=== PATIENT | female | born 1950 | race Caucasian/White ===

== ENCOUNTER → 2017-07-25 | Outpatient (CLI) | payer OTHER ==
[2016-09-27 13:49] VITALS: BMI 26.1
[~2017-07-25] MED LIST: ACET-1748 PO; ALBU8.5H IH; ALPR-429 PO; AMOX-559 PO; ASP325 PO; ASPI-1471 PO; ASPI-715 PO; AZIT-1 PO; BISO5 PO; BISTOLIC; BP MED; BUPR-126 PO; CALC-852 PO; CARV25TA78 PO; CIP500 PO; CYC10 PO; DIAZ-308 PO; DIPH0.5V3 IM; DOXY-179 PO; FLUT16SP19 NS; GUAI473L PO; HYDR-3250 PO; HYDR12.558 PO; IBU800 PO; LIDO700A19 TD; LISI-353 PO; LISI-355 PO; LISI-368 PO; LISI30TA49 PO; MECL-111 PO; MECL25TA9 PO; METH4TAB66 PO; MULT-768 PO; MULT1CAP59 PO; NICO-306 BC; NO ROUTINE MEDS; ONDA-2 PO; ONDA4TAB PO; ONDA8TAB94 PO; PRAV10TA45 PO; PRAV10TA46 PO; PRAV20TA66 PO; PRED20TA6 PO; Return to work; SCOT TD; SERT-1 PO; SERT-184 PO; SIMV-42 PO; SUMA50TA34 PO; VENL37.53 PO; ZIA10 PO
[2017-07-25 16:24] LABS: PLATELET COUNT, AUTOMATED 182 K/uL (150-450)
--- NOTE | 2017-07-25 16:41 | RADIOLOGY IMAGING REPORT ---
FACILITY: [facility] - [place] PATIENT NAME: Anita Mayers : 1950 MR: [id number] V: [id number] EXAM DATE: ORDERING PHYSICIAN: FRANCESCA WHITAKER TECHNOLOGIST: Location: [facility] Patient: Anita Mayers : 1950 Visit/Account:[id number] Date of Sevice: 07/25/2017 CHEST PA AND LAT INDICATION: RUQ abdominal pain COMPARISON: 03/10/2017 FINDINGS: Heart size within normal limits. There is no focal infiltrate or lobar consolidation. There is no pneumothorax or pleural effusion. IMPRESSION: 1. No acute cardiopulmonary process. Report Dictated By: Dwayne Chávez at 07/25/2017 4:35 PM Report E-Signed By: Dwayne Chávez at 07/25/2017 4:36 PM WSN:[id number]
== END ==
LOC: LAB 15:59
PROVIDERS: ATTEND Nurse Practitioner Primary Care
DX: R10.11 Right upper quadrant pain (principal)
CPT/HCPCS: 36415; 71046; 81001; 82040; 82150; 82247; 82310; 82374; 82435; 82565; 82947; 83690; 84075; 84132; 84155; 84295; 84450; 84460; 84520; 85025

== ENCOUNTER → 2017-09-10 | Outpatient (CLI) | payer OTHER ==
[2016-09-27 13:49] VITALS: BMI 26.1
[~2017-09-10] MED LIST changes: +IPRA3AMP21 IH
--- NOTE | 2017-09-10 17:01 | RADIOLOGY IMAGING REPORT ---
FACILITY: [facility] PATIENT NAME: Anita Mayers : 1950 MR: [id number] V: [id number] EXAM DATE: ORDERING PHYSICIAN: FRANCESCA WHITAKER TECHNOLOGIST: [facility] Patient: Anita Mayers : 1950 Visit/Account:[id number] Date of Sevice: 09/10/2017 2 VIEWS CHEST INDICATION: Cough shortness of breath. History of smoking. COMPARISON: 07/25/2017. FINDINGS: Cardiomediastinal silhouette and pulmonary vessels within normal limits. There is no focal infiltrate or lobar consolidation. There is no pneumothorax or pleural effusion. No nodule. Upper abdomen is unremarkable. No acute bony abnormality. IMPRESSION: 1. No acute cardiopulmonary process. Report Dictated By: Fortunato Maza at 09/10/2017 4:56 PM Report E-Signed By: Fortunato Maza at 09/10/2017 4:57 PM WSN:[id number]
== END ==
LOC: RAD 16:15
PROVIDERS: ATTEND Nurse Practitioner Primary Care
DX: R06.02 Shortness of breath (principal)
CPT/HCPCS: 71046

== ENCOUNTER → 2018-01-28 | Outpatient (CLI) | payer OTHER ==
[2016-09-27 13:49] VITALS: BMI 26.1
[~2018-01-28] MED LIST changes: +AMOX500T10 PO; +BENZ200C15 PO; +CLAR-1 PO; +GUAI120L3 PO; +IPRA3AMP10 IH; -IPRA3AMP21 IH; +LOR5/325 PO; +ONDA4TAB97 PO; +PANT40TA65 PO; +PRED-1 PO; +Work Note
--- NOTE | 2018-01-28 10:44 | RADIOLOGY IMAGING REPORT ---
[place]AC[place] [facility] [place] PATIENT NAME: Anita Mayers : 1950 MR: [id number] V: [id number] EXAM DATE: ORDERING PHYSICIAN: FRANCESCA WHITAKER TECHNOLOGIST: Location: [facility] [place] Patient: Anita Mayers : 1950 Visit/Account:[id number] Date of Sevice: 01/28/2018 GALLBLADDER HISTORY: Right upper quadrant pain x2 weeks COMPARISON: None. FINDINGS: Gallbladder: There is no demonstration of bladder stones sludge or gallbladder wall thickening. Is a negative Cisneros sign Liver: Mild increased echogenicity throughout liver which can be seen with fatty infiltration or othe r infiltrative process Common duct: 5.4 mm diameter.. There is a 10 x 6 x 12 mm ovoid echogenic focus within the common sam e duct although no evidence of biliary ductal dilatation Pancreas: Partially obscured by bowel, visualized aspects unremarkable. Right kidney: Right kidney appears unremarkable measuring 9.2 cm in length Upper abdominal aorta and IVC: Patent. Ascites: None visualized. IMPRESSION: Mild fatty infiltration of the liver No evidence of gallstones although there is a 10 x 6 x 12 mm ovoid echogenic focus within the common bile duct. This could represent choledocholithiasis or possibly a sludge ball. There is no evidence of common bile duct dilatation or intrahepatic ductal dilatation Report Dictated By: Christa Borden MD at 01/28/2018 10:37 AM Report E-Signed By: Christa Borden MD at 01/28/2018 10:40 AM WSN:[id number]
== END ==
LOC: US 01:14
PROVIDERS: ATTEND Nurse Practitioner Primary Care
DX: K76.0 Fatty (change of) liver, not elsewhere classified (principal)
CPT/HCPCS: 76705

== ENCOUNTER 2018-01-29 10:11 | Emergency (ER) | payer OTHER ==
[2016-09-27 13:49] VITALS: Wt 68.0 kg
[~2018-01-29 10:11] MED LIST changes: -AMOX500T10 PO; -CLAR-1 PO; -LOR5/325 PO; -ONDA4TAB97 PO; -PANT40TA65 PO
[2018-01-29 10:15] VITALS: BP 126/99
--- NOTE | 2018-01-29 10:15 | ER Report ---
History and Physical Time Seen By MD: 10:14 HPI/ROS CHIEF COMPLAINT: Abdominal pain HISTORY OF PRESENT ILLNESS: Patient is a 67-year-old female who presents to the emergency department with complaint of abdominal pain. Patient is had 2-3 weeks of colicky right upper quadrant pain is being followed by her primary care provider. Patient had blood work drawn on January 26 which was unremarkable. She had an outpatient ultrasound yesterday which did not show any evidence of cholecystitis however there was some fatty infiltration of the liver along with a 10 x 6 x 12 mm ovoid echogenic focus within the common bile duct. There is no evidence of common bile duct dilatation or intrahepatic duct dilatation. Patient was at work today when her symptoms recurred so she presents to the emergency department for evaluation REVIEW OF SYSTEMS: Constitutional: No fever, no chills. Eyes: No discharge. ENT: No sore throat. Cardiovascular: No chest pain, no palpitations. Respiratory: No cough, no shortness of breath. Gastrointestinal: Right upper quadrant abdominal pain associated nausea Genitourinary: No hematuria. Musculoskeletal: No back pain. Skin: No rashes. Neurological: No headache. Allergies: Coded Allergies: No Known Drug Allergies (Verified , 03/10/17) Home Meds Active Scripts Hydrocodone Bit/Acetaminophen (HYDROCODON-ACETAMINOPHEN 5-325) 1 Each Tablet, 1 EACH PO Q4-6H PRN for PAIN, #12 TAB 0 Refills TAKE ONE TABLET BY MOUTH EVERY 4-6 HOURS NEEDED FOR PAIN Prov:WILVER JORGE MD 01/29/18 Ondansetron Hcl (ZOFRAN) 4 Mg Tablet, 4 MG PO Q8H for Nausea, #15 TAB 0 Refills Prov:WILVER JORGE MD 01/29/18 Amoxicillin 500 Mg Tab (AMOXICILLIN 500 MG TAB) 500 Mg Tablet, 2 TAB PO Q12H, #56 TAB 0 Refills TAKE TWO TABLETS BY MOUTH EVERY 12 HOURS Prov:WILVER JORGE MD 01/29/18 Clarithromycin (CLARITHROMYCIN) 500 Mg Tablet, 500 MG PO BID for 14 Days, #28 TAB 0 Refills Prov:WILVER JORGE MD 01/29/18 Pantoprazole Sodium (PANTOPRAZOLE SODIUM) 40 Mg Tablet.dr, 40 MG PO BID for 14 Days, #28 TAB.SR 0 Refills Prov:WILVER JORGE MD 01/29/18 Pravastatin Sodium (PRAVASTATIN SODIUM) 20 Mg Tablet, 1 TAB PO QDAY, #90 TAB 1 Refill Prov:FRANCESCA WHITAKER DNP, FNP-BC 09/16/17 Lisinopril/Hydrochlorothiazide (LISINOPRIL-HCTZ 20-25 MG TAB) 1 Each Tablet, 1 EACH PO QDAY, #90 TAB 1 Refill Prov:FRANCESCA WHITAKER DNP, FNP-BC 09/16/17 Carvedilol (CARVEDILOL) 25 Mg Tablet, 1 TAB PO BID for Blood Pressure, #180 TAB 1 Refill Prov:FRANCESCA WHITAKER DNP, FNP-BC 09/16/17 Ipratropium/Albuterol Sulfate (IPRAT-ALBUT 0.5-3(2.5) MG/3 ML) 3 Ml Ampul.neb, 3 ML IH Q4-6H PRN for SHORTNESS OF BREATH, #30 VIAL 0 Refills Prov:FRANCESCA WHITAKER DNP, FNP-BC 09/10/17 Albuterol Sulfate 90 Mcg/Act (PROAIR HFA 90 MCG/ACT) 8.5 Gm Hfa.aer.ad, 1-2 PUFF IH 3-4XD, #1 INHALER 3 Refills Prov:FRANCESCA WHITAKER DNP, FNP-BC 03/07/17 Fluticasone Prop 50 Mcg Ns (FLONASE 50 MCG NS) 16 Gm [place].susp, 1 SPRAY NS BID, #1 BOT 0 Refills Prov:FRANCESCA WHITAKER DNP, FNP-BC 11/26/16 Reported Medications Sertraline Hcl (SERTRALINE HCL) 50 Mg Tablet, 0.5 TAB PO QDAY, TAB 03/07/17 Discontinued Reported Medications Calcium Carbonate/Vitamin D3 (CALCIUM + VITAMIN D TABLET) 1 Each Tablet, 1 EACH PO QDAY 04/19/16 Aspirin (ASPIR 81) 81 Mg Tablet.dr, 81 MG PO QDAY, TAB 10/18/13 Discontinued Scripts [Work Note] No Conflict Check Patient seen in the office 09/10 and 09/16. Please excuse from work 09/10-09/16. May return 09/17 as tolerated. Prov:FRANCESCA WHITAKER DNP, FNP-BC 09/16/17 Nicotine Polacrilex (NICOTINE GUM) 2 Mg Gum, 1 GUM BC Q1-2H PRN for Smoking Cessation, #1 BOX 2 Refills Weeks 1-6: Chew 1 piece q1-2hrs. Weeks 7-9: 1 piece q2-4hrs. Weeks 10-12: 1 piece q4-8hrs. Prov:FRANCESCA WHITAKER DNP, DIRECTOR EMERGENCY SERVICES-BC 10/30/16 Guaifenesin/Codeine Phosphate (Codeine-Guaifen 10-100 mg/5 ml) 120 Ml Liquid, 1- 2 TSP PO Q6H PRN for COUGH, #120 ML 0 Refills Prov:FRANCESCA WHITAKER DNP [facility] 09/16/17 Benzonatate (BENZONATATE) 200 Mg Capsule, 1 CAP PO TID PRN for COUGH, #15 CAP 0 Refills Prov:FRANCESCA WHITAKER DNP [facility]- 09/16/17 Prednisone 10 Mg Tab (PREDNISONE 10 MG TAB) 10 Mg Tablet, 2 TAB PO QDAY, #11 TAB 0 Refills Take 2 tabs daily for 4 days. Then take 1 tab daily for 3 days. Prov:FRANCESCA WHITAKER DNP, [facility] 09/16/17 Past Medical/Surgical History Past medical history for hyperlipidemia, hypertension, hepatitis C history of cervical cancer status post hysterectomy. Hx Smoking: Yes Smoking Status: Current: Every Day Smoker, Light Tobacco Smoker Exposure to Second Hand Smoke?: Yes Hx Substance Use Disorder: No Hx Alcohol Use: Yes Constitutional Vital Sign - Last 24 Hours 01/29/18 01/29/18 01/29/18 01/29/18 10:15 11:41 11:56 13:00 Temp 98.2 Pulse 86 58 62 53 Resp 16 B/P (MAP) 126/99 Pulse Ox 93 94 87 91 O2 Delivery Room Air 01/29/18 01/29/18 13:15 13:25 Pulse 58 Pulse Ox 95 O2 Flow Rate 2.0 Physical Exam General/Constitutional: Patient is awake, alert, nontoxic and in no acute respiratory distress. Head: Normocephalic and atraumatic. Eyes: Conjunctival clear, Sclera are clear and anicteric. Ears:External canals are clear. Tympanic membranes are clear with normal landmarks and light reflex. Nares: No rhinorrhea or bleeding. Turbinates are pink and moist. Oropharyngeal: Mucous membranes are moist. Neck: Supple, no adenopathy. Cardiovascular: Heart is regular rate and rhythm without audible murmurs, rubs or gallops. Pulmonary: Lungs are clear to auscultation bilaterally. There are no wheezes, rales, or rhonchi. Chest rise is symmetrical Abdomen: Right upper quadrant tenderness to palpation Extremities: No gross deformities, No peripheral cyanosis. Able to move all 4 extremities. Neuro: Alert and oriented X3, Cranial nerves 2 thru 12 are intact and symmetrical. Patient has normal gait. Skin: No rashes, skin is warm dry and well perfused. Medical Decision Making Data Points Result Diagram: 01/29/18 1038 01/29/18 1038 Laboratory Hematology Test 01/29/18 10:24 01/29/18 10:38 Urine Color Yellow Urine Clarity Slightly-cloudy Urine pH 7.0 pH (4.8-9.5) Urine Specific [place] 1.010 Urine Protein Negative mg/dL (NEGATIVE) Urine Glucose (UA) Negative mg/dL (NEGATIVE) Urine Ketones Negative mg/dL (NEGATIVE) Urine Blood Negative (NEGATIVE) Urine Nitrite Negative (NEGATIVE) Urine Bilirubin Negative (NEGATIVE) Urine Urobilinogen Negative mg/dL (0.2-1.9) Urine Leukocyte Esterase Negative (NEGATIVE) Urine RBC <1 /HPF (0-2/HPF) Urine WBC 5 /HPF (0-5/HPF) Urine Squamous Epithelial Cells Many /LPF (</=FEW) Urine Transitional Epithelial Cells Few /LPF (NONE-FEW) Urine Bacteria Few /HPF (NONE-FEW) Urine Mucus None /HPF (NONE-FEW) Red Blood Count 5.21 M/uL (4.17-5.56) Mean Corpuscular Volume 89.6 fL (80.0-96.0) Mean Corpuscular Hemoglobin 30.5 pg (26.0-33.0) Mean Corpuscular Hemoglobin Concent 34.1 g/dL (32.0-36.0) Red Cell Distribution Width 13.2 % (11.5-14.5) Mean Platelet Volume 8.2 fL (7.2-11.1) Neutrophils (%) (Auto) 51.4 % (39.4-72.5) Lymphocytes (%) (Auto) 34.5 % (17.6-49.6) Monocytes (%) (Auto) 10.7 % (4.1-12.4) Eosinophils (%) (Auto) 2.5 % (0.4-6.7) Basophils (%) (Auto) 0.9 % (0.3-1.4) Nucleated RBC Relative Count (auto) 0.2 /100WBC Neutrophils # (Auto) 2.2 K/uL (2.0-7.4) Lymphocytes # (Auto) 1.4 K/uL (1.3-3.6) Monocytes # (Auto) 0.4 K/uL (0.3-1.0) Eosinophils # (Auto) 0.1 K/uL (0.0-0.5) Basophils # (Auto) 0.0 K/uL (0.0-0.1) Nucleated RBC Absolute Count (auto) 0.01 K/uL Sodium Level 138 mmol/L (137-145) Potassium Level 3.9 mmol/L (3.5-5.0) Chloride Level 98 mmol/L (98-107) Carbon Dioxide Level 30 mmol/L (22-31) Blood Urea Nitrogen 17 mg/dl (7-18) Creatinine 1.20 mg/dl (0.52-1.04) Glomerular Filtration Rate Calc 45.1 Random Glucose 82 mg/dl (75-110) Calcium Level 9.5 mg/dl (8.4-10.2) Total Bilirubin 0.3 mg/dl (0.2-1.3) Aspartate Amino Transf (AST/SGOT) 19 U/L (0-35) Alanine Aminotransferase (ALT/SGPT) 20 U/L (0-56) Alkaline Phosphatase 49 U/L (0-126) Total Protein 7.5 g/dl (6.3-8.2) Albumin 4.5 g/dl (3.5-5.0) Lipase 168 U/L (23-300) Helicobacter pylori IgG Antibody Positive (NEGATIVE) Chemistry Test 01/29/18 10:24 01/29/18 10:38 Urine Color Yellow Urine Clarity Slightly-cloudy Urine pH 7.0 pH (4.8-9.5) Urine Specific [place] 1.010 Urine Protein Negative mg/dL (NEGATIVE) Urine Glucose (UA) Negative mg/dL (NEGATIVE) Urine Ketones Negative mg/dL (NEGATIVE) Urine Blood Negative (NEGATIVE) Urine Nitrite Negative (NEGATIVE) Urine Bilirubin Negative (NEGATIVE) Urine Urobilinogen Negative mg/dL (0.2-1.9) Urine Leukocyte Esterase Negative (NEGATIVE) Urine RBC <1 /HPF (0-2/HPF) Urine WBC 5 /HPF (0-5/HPF) Urine Squamous Epithelial Cells Many /LPF (</=FEW) Urine Transitional Epithelial Cells Few /LPF (NONE-FEW) Urine Bacteria Few /HPF (NONE-FEW) Urine Mucus None /HPF (NONE-FEW) White Blood Count 4.2 k/uL (4.5-11.0) Red Blood Count 5.21 M/uL (4.17-5.56) Hemoglobin 15.9 g/dL (12.0-16.0) Hematocrit 46.7 % (34.0-47.0) Mean Corpuscular Volume 89.6 fL (80.0-96.0) Mean Corpuscular Hemoglobin 30.5 pg (26.0-33.0) Mean Corpuscular Hemoglobin Concent 34.1 g/dL (32.0-36.0) Red Cell Distribution Width 13.2 % (11.5-14.5) Platelet Count 201 K/uL (150-450) Mean Platelet Volume 8.2 fL (7.2-11.1) Neutrophils (%) (Auto) 51.4 % (39.4-72.5) Lymphocytes (%) (Auto) 34.5 % (17.6-49.6) Monocytes (%) (Auto) 10.7 % (4.1-12.4) Eosinophils (%) (Auto) 2.5 % (0.4-6.7) Basophils (%) (Auto) 0.9 % (0.3-1.4) Nucleated RBC Relative Count (auto) 0.2 /100WBC Neutrophils # (Auto) 2.2 K/uL (2.0-7.4) Lymphocytes # (Auto) 1.4 K/uL (1.3-3.6) Monocytes # (Auto) 0.4 K/uL (0.3-1.0) Eosinophils # (Auto) 0.1 K/uL (0.0-0.5) Basophils # (Auto) 0.0 K/uL (0.0-0.1) Nucleated RBC Absolute Count (auto) 0.01 K/uL Glomerular Filtration Rate Calc 45.1 Calcium Level 9.5 mg/dl (8.4-10.2) Total Bilirubin 0.3 mg/dl (0.2-1.3) Aspartate Amino Transf (AST/SGOT) 19 U/L (0-35) Alanine Aminotransferase (ALT/SGPT) 20 U/L (0-56) Alkaline Phosphatase 49 U/L (0-126) Total Protein 7.5 g/dl (6.3-8.2) Albumin 4.5 g/dl (3.5-5.0) Lipase 168 U/L (23-300) Helicobacter pylori IgG Antibody Positive (NEGATIVE) Urinalysis Test 01/29/18 10:24 Urine Color Yellow Urine Clarity Slightly-cloudy Urine pH 7.0 pH (4.8-9.5) Urine Specific [place] 1.010 Urine Protein Negative mg/dL (NEGATIVE) Urine Glucose (UA) Negative mg/dL (NEGATIVE) Urine Ketones Negative mg/dL (NEGATIVE) Urine Blood Negative (NEGATIVE) Urine Nitrite Negative (NEGATIVE) Urine Bilirubin Negative (NEGATIVE) Urine Urobilinogen Negative mg/dL (0.2-1.9) Urine Leukocyte Esterase Negative (NEGATIVE) Urine RBC <1 /HPF (0-2/HPF) Urine WBC 5 /HPF (0-5/HPF) Urine Squamous Epithelial Cells Many /LPF (</=FEW) Urine Transitional Epithelial Cells Few /LPF (NONE-FEW) Urine Bacteria Few /HPF (NONE-FEW) Urine Mucus None /HPF (NONE-FEW) EKG/Imaging Imaging [place] [facility] [place] NAME: Anita Mayers : 1950 MR: [id number] V: [id number] EXAM DATE: ORDERING PHYSICIAN: WILVER JORGE TECHNOLOGIST: Location: [facility] Patient: Anita Mayers : 1950 Visit/Account:[id number] Date of Sevice: 01/29/2018 MRI CHOLANGIOPANCREAT W/WO CON HISTORY: biliary colic; echogenic focus seen in CBD on U/s TECHNIQUE: Multiplanar multisequence magnetic resonance imaging of the abdomen without and with intravenous contrast including magnetic resonance cholangiopancreatography (MRCP). CONTRAST: None. COMPARISON: Right upper quadrant ultrasound 01/28/2018 FINDINGS: Visualized lung bases: Grossly unremarkable. Liver: Normal signal is seen. Normal enhancement is identified. The portal veins and hepatic veins are normal. Gallbladder: Normal T2 signal is seen within the gallbladder. Bile ducts: Intrahepatic. Ducts, the cystic duct, and the common bile duct are normal. Common bile duct measures 7 mm in size. There is no evidence of filling defect. Spleen: Negative. Adrenal glands: Negative. Pancreas: Pancreas densities normal enhancement. Pancreatic duct is normal size. Kidneys: Negative. Vessels/spaces/nodes: No bulky adenopathy or ascities. Visualized GI: Grossly unremarkable. Bones/soft tissues: Unremarkable. IMPRESSION: 1. Normal appearance of the gallbladder, normal appearance of the cystic duct, normal appearance of the common bile duct. There is no evidence of calculus in the biliary tree. 2. Normal MRCP. This was called by Dr. Jones to WILVER JORGE on 01/29/2018 1:39 PM Report Dictated By: Nuno Jones at 01/29/2018 1:39 PM Report E-Signed By: Nuno Jones at 01/29/2018 1:48 PM WSN:[id number] ED Course/Re-evaluation Clinical Indication for ER IV: IV Access ED Course 01/29/2018 11:52:24 am bloodwork is unremarkable with exception of patient is H pylori positive. Pain is improved after Toradol Pepcid and Zofran. I spoke with guarding this patient he requests an MRCP be performed. 01/29/2018 1:52:45 pm MRCP reported to be totally normal by radiology. Patient did test positive for H. pylori. Plan at this time will be to start on triple therapy for H. pylori patient will be followed up by Dr. Oropeza on Friday. Decision to Disposition Date: Jan 29, 2018 Decision to Disposition Time: 13:59 Depart Departure Latest Vital Signs Vital Signs Date Time Temp Pulse Resp B/P (MAP) Pulse Ox O2 Delivery O2 Flow Rate FiO2 01/29/18 13:25 2.0 01/29/18 13:15 58 95 01/29/18 10:15 98.2 16 126/99 Room Air Impression: Primary Impression: Helicobacter pylori gastritis Condition: Improved Disposition: HOME OR SELF-CARE Referrals: FRANCESCA WHITAKER DNP, DIRECTOR EMERGENCY SERVICES-BC (PCP) TONO VERGARA MD follow up this Friday; Dr Vergara's office will call you with an appointment time New Scripts Hydrocodone Bit/Acetaminophen (HYDROCODON-ACETAMINOPHEN 5-325) 1 Each Tablet 1 EACH PO Q4-6H PRN for PAIN, #12 TAB 0 Refills TAKE ONE TABLET BY MOUTH EVERY 4-6 HOURS NEEDED FOR PAIN Prov: WILVER JORGE MD 01/29/18 Ondansetron Hcl (ZOFRAN) 4 Mg Tablet 4 MG PO Q8H for Nausea, #15 TAB 0 Refills Prov: WILVER JORGE MD 01/29/18 Amoxicillin 500 Mg Tab (AMOXICILLIN 500 MG TAB) 500 Mg Tablet 2 TAB PO Q12H, #56 TAB 0 Refills TAKE TWO TABLETS BY MOUTH EVERY 12 HOURS Prov: WILVER JORGE MD 01/29/18 Clarithromycin (CLARITHROMYCIN) 500 Mg Tablet 500 MG PO BID for 14 Days, #28 TAB 0 Refills Prov: WILVER JORGE MD 01/29/18 Pantoprazole Sodium (PANTOPRAZOLE SODIUM) 40 Mg Tablet. 40 MG PO BID for 14 Days, #28 TAB.SR 0 Refills Prov: WILVER JORGE MD 01/29/18 Patient Instructions: Diet for Stomach Ulcers and Gastritis (GEN), Gastritis (DC), Helicobacter Pylori (GEN) Additional Instructions: Take all of your prescriptions as directed. He will have an appointment this Friday with ; his office will call and give you a specific appointment time. If your symptoms worsen at any time you should return to the emergency department for reevaluation. WILVER JORGE MD Jan 29, 2018 10:15
[2018-01-29 10:47] LABS: PLATELET COUNT, AUTOMATED 201 K/uL (150-450)
[2018-01-29] MEDS ORDERED: ONDANSETRON 4 MG/2 ML VIAL IVP ONE (10:50)
[2018-01-29] MEDS ORDERED: FAMOTIDINE(*) 20MG/50ML PREMIX 50 ML IVPB ONE (10:50)
[2018-01-29] MEDS ORDERED: KETOROLAC 15 MG/ML VIAL IVP ONE (10:50)
[2018-01-29] MEDS ORDERED: NS(*) 0.9% 50 ML BAG 50 ML ONE (11:59)
[2018-01-29] MEDS ORDERED: GADOBENATE 529MG/1ML 15ML VIAL IVP ONE (11:59)
[2018-01-29] MEDS ORDERED: fentaNYL CITR 100 MCG/2 ML AMP IVP ONE (13:50)
--- NOTE | 2018-01-29 13:52 | RADIOLOGY IMAGING REPORT ---
FACILITY: [facility] PATIENT NAME: Anita Mayers : 1950 MR: [id number] V: [id number] EXAM DATE: ORDERING PHYSICIAN: WILVER JORGE TECHNOLOGIST: Location: [facility] [place] Patient: Anita Mayers : 1950 Visit/Account:[id number] Date of Sevice: 01/29/2018 MRI CHOLANGIOPANCREAT W/WO CON HISTORY: biliary colic; echogenic focus seen in CBD on U/s TECHNIQUE: Multiplanar multisequence magnetic resonance imaging of the abdomen without and with intr avenous contrast including magnetic resonance cholangiopancreatography (MRCP). CONTRAST: None. COMPARISON: Right upper quadrant ultrasound 01/28/2018 FINDINGS: Visualized lung bases: Grossly unremarkable. Liver: Normal signal is seen. Normal enhancement is identified. The portal veins and hepatic veins ar e normal. Gallbladder: Normal T2 signal is seen within the gallbladder. Bile ducts: Intrahepatic. Ducts, the cystic duct, and the common bile duct are normal. Common bile du ct measures 7 mm in size. There is no evidence of filling defect. Spleen: Negative. Adrenal glands: Negative. Pancreas: Pancreas densities normal enhancement. Pancreatic duct is normal size. Kidneys: Negative. Vessels/spaces/nodes: No bulky adenopathy or ascities. Visualized GI: Grossly unremarkable. Bones/soft tissues: Unremarkable. IMPRESSION: 1. Normal appearance of the gallbladder, normal appearance of the cystic duct, normal appearance of t he common bile duct. There is no evidence of calculus in the biliary tree. 2. Normal MRCP. This was called by Dr. Jones to WILVER JORGE on 01/29/2018 1:39 PM Report Dictated By: Nuno Jones at 01/29/2018 1:39 PM Report E-Signed By: Nuno Jones at 01/29/2018 1:48 PM WSN:[id number]
[2018-01-29] MEDS ORDERED: PANT40TA65 PO (13:57)
[2018-01-29] MEDS ORDERED: AMOX500T10 PO (13:57)
[2018-01-29] MEDS ORDERED: CLAR-1 PO (13:57)
[2018-01-29] MEDS ORDERED: ONDA4TAB97 PO (13:57)
[2018-01-29] MEDS ORDERED: LOR5/325 PO (13:58)
== END 2018-01-29 14:30 | disposition home or self-care (01) ==
LOC: ER 10:13
DX: A04.8 Other specified bacterial intestinal infections (principal)
CPT/HCPCS: 74183; 81001; 83690; 85025; 86677; 96365; 96375; 99284; A9577; J1885; J2405; J3490; J7050; 82040; 82247; 82310; 82374; 82435; 82565; 82947; 84075; 84132; 84155; 84295; 84450; 84460; 84520

== ENCOUNTER → 2018-02-05 | Outpatient (CLI) | payer OTHER ==
[2016-09-27 13:49] VITALS: BMI 26.1
[~2018-02-05] MED LIST changes: +AMOX500T10 PO; +CLAR-1 PO; +LOR5/325 PO; +ONDA4TAB97 PO; +PANT40TA65 PO; +SINCALIDE 5 MCG VIAL INJ ONE; +WATER FOR INJ,STERILE 20 ML 20 ML ONE
--- NOTE | 2018-02-05 09:54 | RADIOLOGY IMAGING REPORT ---
FACILITY: [facility] PATIENT NAME: Anita Mayers : 1950 MR: [id number] V: [id number] EXAM DATE: ORDERING PHYSICIAN: TONO VERGARA TECHNOLOGIST: Location: [facility] [place] Patient: Anita Mayers : 1950 Visit/Account:[id number] Date of Sevice: 02/05/2018 Examination: Nuclear Medicine HIDA Scan with Kinevac Stimulation COMPARISON: MRI 01/29/2018. Ultrasound 01/28/2018. HISTORY: Right upper quadrant pain. TECHNIQUE: 6.2 mCi Tc99m Mebrofenin was injected intravenously. Multiple sequential gamma camera spenser ges of the abdomen were obtained for 20 minutes. At that time, 2.6 mcg Kinevac was injected intraveno usly and an additional 30 minutes of gamma camera imaging data was acquired. A computer-generated reg ion of interest was placed around the gallbladder and time-activity curve for the gallbladder was arthur ived. The gallbladder ejection fraction was calculated. FINDINGS: Liver uptake and excretion: normal Time to appearance: Bile ducts: 6 minutes. Gallbladder: 10 minutes. Duodenum: 10 minutes. Duodenogastric reflux: none Post IV Kinevac: Ejection fraction = 71 %, (normal > 35%). Patient symptoms: CCK administration resulted in right upper quadrant pain and nausea. This is o f uncertain significance given the otherwise unremarkable evaluation of the gallbladder and biliary s ystem and in some patients, abdominal pain is a side effect to the administration of exogenous CCK. IMPRESSION: 1. No evidence of cholecystitis or biliary obstruction. 2. Gallbladder ejection fraction of 71%. Report Dictated By: Bandar Parker MD at 02/05/2018 9:48 AM Report E-Signed By: Bandar Parker MD at 02/05/2018 9:50 AM WSN:[id number]
== END ==
LOC: RAD 00:25
PROVIDERS: ATTEND Surgery
DX: R10.11 Right upper quadrant pain (principal)
CPT/HCPCS: 78226; A9537; J2805

== ENCOUNTER → 2018-02-06 | Outpatient (CLI) | payer OTHER ==
[2016-09-27 13:49] VITALS: BMI 26.1
[~2018-02-06] MED LIST changes: -SINCALIDE 5 MCG VIAL INJ ONE; -WATER FOR INJ,STERILE 20 ML 20 ML ONE
== END ==
LOC: LAB 10:21
PROVIDERS: ATTEND Surgery
DX: B19.20 Unspecified viral hepatitis C without hepatic coma (principal)
CPT/HCPCS: 36415; 80074

== ENCOUNTER → 2018-02-10 | Outpatient (CLI) | payer OTHER ==
[2016-09-27 13:49] VITALS: BMI 26.1
== END ==
LOC: LAB 08:15
PROVIDERS: ATTEND Surgery
DX: R76.8 Other specified abnormal immunological findings in serum (principal)
CPT/HCPCS: 36415; 87522

== ENCOUNTER 2018-03-05 08:15 | Outpatient (RCR) | payer OTHER ==
[2016-09-27 13:49] VITALS: BMI 26.1
--- NOTE | 2018-02-11 08:05 | PT INITIAL EVALUATION ---
MEDICAL DIAGNOSIS: Right-sided back pain, Right flank pain TREATMENT DIAGNOSIS: same DATE OF ONSET: 02/02/18 SUBJECTIVE: Anita Mayers presents to physical therapy with complaints of low back pain associated with R sided back pain along with right flank pain. She reports that she initially thought it was kidney or gallbladder pain; however, she reports that the initial testing was negative. She reports that her pain is worse with lifting and feels more like soreness than pain. She reports that she always has low back soreness more on the R side and describes it as a constant soreness and rates it to be 3.5-5/10. She reports that the R flank pain comes and goes and typically is extremely painful with walking. She also reports that she has neck pain that comes and goes and sometimes radiates to her B shoulders. Denies pain with coughing, sneezing, and straining. Denies any recent surgeries, imaging, and no accidents. She reports night pain, but denies unexplained weight loss. Pain location is L3-L5 central and on R side and described as soreness and extreme pain on the R flank. Pain scale is 4 on a ten point pain scale. REHAB PROBLEM LIST: Increased Pain Decreased ROM Decreased Strength Decreased Endurance Decreased Balance Decreased Function Decreased ADL's Decreased Gait PREVIOUS MEDICAL HISTORY: See EMR OCCUPATION: Environmental Services at [employer] OBJECTIVE: Posture: She demonstrates B rounded shoulders, increased thoracic kyphosis, and decreased lumbar lordosis. She demonstrated no lateral shifts either way. ROM: Trunk AROM: flexion: minimal restriction with tight muscular end feel. extension: NIL with normal end feel. side gliding R: moderate restriction with stuck end feel (painful end feel). side gliding L: minimal restriction with painful end feel. Strength: B hip flexion, extension, adduction, abduction, B knee flexion and extension, and B ankle DF and PF: 4/5. Palpation: TTP: L3-5 spinous process (central) and R sided facet to PSIS. Sensation: Intact L2-S1 Special Tests: Repeated extension: increased pain during the test and worse following the test. Repeated flexion: increased pain during the test and better following the test with increased trunk AROM in all directions. Mobility: Independent Gait: She demonstrated increased base of support, decreased pelvic rotation, decreased velocity, and antalgic gait. Balance: Will test in the future ASSESSMENT: Anita will benefit from skilled physical therapy to address the listed impairments to improve function and QOL. Based on the examination, her provisional classification is an anterior derangement that responded with centralized pain and increased trunk AROM in all directions with flexion based exercises to improve function and return to prior level of function. Short Term Goals 2 weeks: Pt will demonstrate directional preference and centralized low back pain to improve function and QOL. 4 weeks: Pt will demonstrate centralized and abolished low back pain with return to trunk AROM in all directions to improve function and QOL. 6 weeks: Pt will demonstrate return to full strength from baseline to 4+/5 to 5/5 to return to prior level of function to improve QOL. Patient's Goals reduce pain and get rid of the R flank pain PLAN: Patient to be seen for Manual Therapy/STM/MET Strengthening/condition Ice/Heat Range of Motion Spinal Stabilization Work Hardening/Cond Stretching Neuromuscular Re-ed Closed Chain Program Electrical Stim Posture/Body mechanics Gait Trg/Balance Trg Home Exercise Program Therapeutic Activities 2-3x/week for 6 weeks If you have any questions, comments, or concerns about this report or plan, please contact me at . Thank you, Cholo Quiles, PT, DPT MTDD
--- NOTE | 2018-03-05 09:00 | PT PLAN OF CARE ---
Physician: Vaughn Gamble MD Patient is being seen: 1-2x/week Therapist: Cholo Quiles, PT, DPT Medical Diagnosis: Right-sided back pain, Right flank pain Treatment Diagnosis: same Date of Onset: 02/02/18 Date of Initial Evaluation: 02/10/18 Date patient was last seen: 03/05/18 Number of treatments: 3 Number of cancellations/No shows: 0 INTERVENTIONS: Manual Therapy/STM/MET Strengthening/condition Ice/Heat Range of Motion Spinal Stabilization Work Hardening/Cond Stretching Neuromuscular Re-ed Closed Chain Program Electrical Stim Posture/Body mechanics Gait Trg/Balance Trg Home Exercise Program Therapeutic Activities GOALS: 2 weeks: Pt will demonstrate directional preference and centralized low back pain to improve function and QOL. MET 4 weeks: Pt will demonstrate centralized and abolished low back pain with return to trunk AROM in all directions to improve function and QOL. MET 6 weeks: Pt will demonstrate return to full strength from baseline to 4+/5 to 5/5 to return to prior level of function to improve QOL. MET PATIENT'S GOAL: reduce pain and get rid of the R flank pain Status of Patient's Goals: MET Patient Compliance: Good Prognosis: Good Reasons for continuing therapy: This is a discharge note for Anita Mayers. She reports that she is doing well. She reports that the R flank pain has abolished. She reports that the low back pain has almost abolished but occasionally feels soreness following work. She reports that she is independent in her specific exercise and her home exercise program. She continues to demonstrate directional preference with flexion as it has abolished her low back pain and has abolished the radiating pain from the R flank to the low back. She demonstrates full trunk AROM in all directions with normal end feels. However, she continues to have occasional soreness in her low back region that is alleviated by repeated flexion; therefore, we can conclude the the anterior derangement is 90% healed and as she continues to perform her specific exercise that it will fully heal in the future (in the next 6 weeks or less based on research) and completely abolish the soreness. She is independent in education, prevention, and what to do if reoccurrences reoccur. She has met all of her goals. As a result, she will be discharged from PT. Posture: She demonstrates B rounded shoulders, increased thoracic kyphosis, and decreased lumbar lordosis. She demonstrated no lateral shifts either way. ROM: Trunk AROM: flexion: NIL with normal end feel. extension: NIL with normal end feel. side gliding R: NIL with normal end feel. side gliding L: NIL with normal end feel. Strength: B hip flexion, extension, adduction, abduction, B knee flexion and extension, and B ankle DF and PF: 4+/5. Palpation: TTP: No longer TTP Special Tests: Repeated extension: increased pain during the test and worse following the test. Repeated flexion: increased pain during the test and Mobility: Independent If you have any questions, please contact me at [phone]. Thank you, Cholo Quiles, PT, DPT MTDD
== END 2018-03-05 14:25 | disposition home or self-care (01) ==
LOC: PT 08:15
PROVIDERS: ATTEND Surgery
DX: M54.9 Dorsalgia, unspecified (principal); R10.9 Unspecified abdominal pain
CPT/HCPCS: 97162

== ENCOUNTER → 2018-06-02 | Outpatient (CLI) | payer OTHER ==
[2016-09-27 13:49] VITALS: BMI 26.1
[~2018-06-02] MED LIST changes: +NICO1PAT86 TD; +PNEU0.5D3 IM; +VARI50KI IM
--- NOTE | 2018-06-02 11:18 | RADIOLOGY IMAGING REPORT ---
FACILITY: PATIENT NAME: Anita Mayers : 1950 MR: [id number] V: [id number] EXAM DATE: ORDERING PHYSICIAN: FRANCESCA WHITAKER TECHNOLOGIST: Location: [facility] - [place] Patient: Anita Mayers : 1950 Visit/Account:[id number] Date of Sevice: 06/02/2018 Exam type: CHEST PA LAT History: Cough x2 weeks Comparison: September 10, 2017 Findings: There is a small linear band of platelike atelectasis the right midlung field. There is no evidence of acute appearing infiltrates, pleural effusions or pulmonary edema. Cardiac silhouette is normal i n size. IMPRESSION: 1. Small linear band of platelike atelectasis in the right midlung field Report Dictated By: Christa Borden MD at 06/02/2018 11:13 AM Report E-Signed By: Christa Borden MD at 06/02/2018 11:14 AM WSN:[email or web address]
== END ==
LOC: RAD 09:36
PROVIDERS: ATTEND Nurse Practitioner Primary Care
DX: J98.11 Atelectasis (principal)
CPT/HCPCS: 71046

== ENCOUNTER → 2018-06-05 | Outpatient (CLI) | payer OTHER ==
[2016-09-27 13:49] VITALS: BMI 26.1
--- NOTE | 2018-06-05 14:03 | RADIOLOGY IMAGING REPORT ---
FACILITY: [facility] - [place] PATIENT NAME: Anita Mayers : 1950 MR: [id number] V: [id number] EXAM DATE: ORDERING PHYSICIAN: FRANCESCA WHITAKER TECHNOLOGIST: Location: [facility] Patient: Anita Mayers : 1950 Visit/Account:[id number] Date of Sevice: 06/05/2018 DEXA Scan Clinical history: Screening. Comparison: DEXA scan from 02/08/2015. LUMBAR SPINE: The bone mineral density (BMD) measured from L1-L4 correlates with a Z-score of 0.9 and a T-score of -1.1 which is osteopenia as defined by the World Health Organization. The corresponding risk of frac ture in the lumbar spine is 2-3 times increased compared with a young adult reference population. Th is value has decrease by 1.4 % since the prior study. More than 5% change is considered significant. HIP: Bone mineral density (BMD) measured in the LEFT total hip region correlates with a Z-score zero and a T-score of -1.4 which is osteopenia as defined by the World Health Organization. The corresponding risk of fracture in the hip is 2-3 times increased compared to a young adult reference population. Th is value has decreased by 3.2 % since the prior study. More than 5% change is considered significant . T score left femoral neck -1.9 Bone mineral density (BMD) measured in the Femoral Neck region measures 0.769 g/cm?. IMPRESSION: 1. Lumbar spine: Osteopenia. There has been 1.4% decrease in the bone mineral density since the pre vious exam. 2. Left Total Hip: Osteopenia. There has been 3.2% decrease in the bone mineral density since the p revious exam. 3. Femoral Neck: Bone Mineral Density is 0.769 g/cm? The next DEXA scan of this patient should include the following sites: L1-L4 and the left hip. FRAX? WHO Fracture Risk Assessment Tool link: <http://www.shef.ac.uk/FRAX/tool.jsp?locationValue=9> PLEASE NOTE: 1) The World Health Organization defines low BMD as follows: T-score Normal > -1 Osteopenia < -1 and > -2.5 Osteoporosis < -2.5 without fractures Established osteoporosis < -2.5 with fractures 2) In general, you may wish to consider: Diagnosis Treatment Follow-up DEXA Normal BMD Prevention 2-3 years Osteopenia Prevention/therapy 1-2 years Osteoporosis Therapy Yearly 3) Fracture risk estimated from the T-score is more accurate for vertebral fractures (often spontane ous) than for hip fractures. Report Dictated By: Christa Borden MD at 06/05/2018 1:55 PM Report E-Signed By: Christa Borden MD at 06/05/2018 1:56 PM WSN:[email or web address]
--- NOTE | 2018-06-05 14:12 | RADIOLOGY IMAGING REPORT ---
[place] [facility] [place] NAME: BRENT GRIFFITH : [id number] MR: [id number] V: [id number] EXAM DATE: [id number] ORDERING PHYSICIAN: FRANCESCA WHITAKER TECHNOLOGIST: Sandra Senior PROCEDURE:BILATERAL DIGITAL SCREENING MAMMOGRAM WITH CAD ASSISTED INTERPRETATION & 3D TOMOSYNTHESIS COMPARISON:None. INDICATIONS:SCREENING FINDINGS: The breasts are heterogeneously dense which can obscure small masses. The parenchymal pattern has remained stable allowing for difference in mammographic technique & patient positioning. DIAGNOSTIC CATEGORY 1--NEGATIVE. RECOMMENDATIONS: ROUTINE MAMMOGRAM AND CLINICAL EVALUATION. IMPRESSION: BIRADS 1: Negative. No significant abnormality is seen. Dictated by: Christa Borden M.D. on 06/05/2018 at 13:36 Transcribed by: NATALIE on 06/05/2018 at 13:54 Approved by: Christa Borden M.D. on 06/05/2018 at 14:10 [facility]
== END ==
LOC: MAMO 01:19
PROVIDERS: ATTEND Nurse Practitioner Primary Care
DX: Z13.820 Encounter for screening for osteoporosis (principal); Z12.31 Encounter for screening mammogram for malignant neoplasm of breast; M85.89 Other specified disorders of bone density and structure, multiple sites
CPT/HCPCS: 77063; 77067; 77080

== ENCOUNTER → 2018-06-08 | Outpatient (REF) ==
[2016-09-27 13:49] VITALS: BMI 26.1
[~2018-06-08] MED LIST changes: +PRAV40TA78 PO
[2018-06-08 09:55] LABS: LDL CHOLESTEROL 114 mg/dl
== END ==
DX: Z02.9 Encounter for administrative examinations, unspecified (principal)

== ENCOUNTER → 2018-06-09 | Outpatient (CLI) | payer OTHER ==
[2016-09-27 13:49] VITALS: BMI 26.1
== END ==
LOC: LAB 17:10
PROVIDERS: ATTEND Nurse Practitioner Primary Care
DX: Z13.1 Encounter for screening for diabetes mellitus (principal)
CPT/HCPCS: 36415; 83036

== ENCOUNTER → 2018-06-22 | Outpatient (CLI) | payer OTHER ==
[2016-09-27 13:49] VITALS: BMI 26.1
[~2018-06-22] MED LIST changes: +DEX1 PO; +LISI20TA29 PO; +NITR-105 PO; +TAMS0.4C70 PO
[2018-06-22 16:09] LABS: PLATELET COUNT, AUTOMATED 205 K/uL (150-450)
--- NOTE | 2018-06-22 16:38 | RADIOLOGY IMAGING REPORT ---
FACILITY: [facility] - [place] PATIENT NAME: Anita Mayers : 1950 MR: [id number] V: [id number] EXAM DATE: ORDERING PHYSICIAN: FRANCESAC HWITAKER TECHNOLOGIST: Location: [facility] - [place] Patient: Anita Mayers : 1950 Visit/Account:[id number] Date of Sevice: 06/22/2018 ADDENDUM #1 1.3 x 0.9 cm right adrenal mass was present on the prior CT of the chest dated March 07, 2017 and i s most likely a benign adenoma. Report Dictated By: Christa Borden MD at 06/23/2018 1:40 PM Report E-Signed By: Christa Borden MD at 06/23/2018 1:[address] ABDOMEN PELVIS W/O CON HISTORY: Flank pain and difficulty urinating x1 week TECHNIQUE: Axial images acquired through the abdomen/pelvis. Coronal and sagittal reformatting also performed. No IV contrast administered.Dose Lowering Technique One of the following dose optimization techniques was utilized in the performance of this exam: Autom ated exposure control; adjustment of the mA and/or kV according to the patient's size; or use of an i terative reconstruction technique. Specific details can be referenced in the facility's radiology C T exam operational policy. COMPARISON: None. FINDINGS: Visualized lung bases: There is a 1.4 cm bulla in the inferior left lower lobe. Small punctate calc ification projects along the anterior left lower lobe Hepatobiliary: Negative. Spleen: Negative. Adrenals: There Is a 1.3 x 0.9 cm indeterminate right adrenal mass Pancreas: Negative. Kidneys ureters and bladder: Negative. Genitalia: Hysterectomy GI: There is diverticulosis left-sided colon although no CT evidence of acute diverticulitis. Vessels/spaces/nodes: Negative. Bones/soft tissues: There are very mild spondylotic changes in the lumbar spine Additional findings: None pertinent. IMPRESSION: 1.3 x 0.9 cm indeterminate right adrenal mass. This could be further evaluated with dedicated CT or MR of the adrenal glands with and without contrast Diverticulosis of the left-sided colon although no CT evidence of acute diverticulitis No evidence of urolithiasis hydronephrosis or hydroureter Results were called to FRANCESCA WHITAKER at 06/22/2018 4:33 PM. Report Dictated By: Christa Borden MD at 06/22/2018 4:24 PM Report E-Signed By: Christa Borden MD at 06/22/2018 4:34 PM WSN:[email or web address]
== END ==
LOC: LAB 15:43
PROVIDERS: ATTEND Nurse Practitioner Primary Care
DX: E27.9 Disorder of adrenal gland, unspecified (principal); K57.30 Diverticulosis of large intestine without perforation or abscess without bleeding; M47.896 Other spondylosis, lumbar region; R91.8 Other nonspecific abnormal finding of lung field
CPT/HCPCS: 36415; 74176; 81001; 82040; 82247; 82310; 82374; 82435; 82565; 82947; 84075; 84132; 84155; 84295; 84450; 84460; 84520; 85025; 87088

== ENCOUNTER → 2018-06-23 | Outpatient (CLI) | payer OTHER ==
[2016-09-27 13:49] VITALS: BMI 26.1
== END ==
LOC: LAB 15:16
PROVIDERS: ATTEND Nurse Practitioner Primary Care
DX: E87.1 Hypo-osmolality and hyponatremia (principal)
CPT/HCPCS: 36415; 82040; 82247; 82310; 82374; 82435; 82565; 82947; 84075; 84132; 84155; 84295; 84450; 84460; 84520

== ENCOUNTER → 2018-06-24 | Outpatient (CLI) | payer OTHER ==
[2016-09-27 13:49] VITALS: BMI 26.1
== END ==
LOC: LAB 14:34
PROVIDERS: ATTEND Urology
DX: N39.9 Disorder of urinary system, unspecified (principal)
CPT/HCPCS: 88108

== ENCOUNTER → 2018-08-10 | Outpatient (CLI) | payer OTHER ==
[2016-09-27 13:49] VITALS: BMI 26.1
[~2018-08-10] MED LIST changes: +CYCL10TA29 PO; +IBUP800T37 PO
--- NOTE | 2018-08-10 17:36 | RADIOLOGY IMAGING REPORT ---
FACILITY: [facility] PATIENT NAME: Anita Mayers : 1950 MR: [id number] V: [id number] EXAM DATE: ORDERING PHYSICIAN: FRANCESCA WHITAKER TECHNOLOGIST: Location: [facility] - [place], [place] Patient: Anita Mayers : 1950 Visit/Account:[id number] Date of Sevice: 08/10/2018 Exam type: 5 views lumbosacral spine History: Low back pain Comparison: 01/19/2012. Findings: There are 5 nonrib-bearing lumbar vertebral bodies. Oblique views fail to demonstrate a pars defect. Patient is mildly osteopenic with degenerative changes. Facet arthropathy at L5 is noted. AP alignmen t is normal. Soft tissues demonstrate calcification of the aorta. IMPRESSION: 1. Facet arthropathy at L5. No acute fracture. 2. Osteopenia. Report Dictated By: Fortunato Whyte MD at 08/10/2018 5:31 PM Report E-Signed By: Fortunato Whyte MD at 08/10/2018 5:33 PM WSN:[id number]
== END ==
LOC: RAD 16:38
PROVIDERS: ATTEND Nurse Practitioner Primary Care
DX: M54.5 Low back pain (principal); M85.80 Other specified disorders of bone density and structure, unspecified site
CPT/HCPCS: 72120